=== PATIENT | female | born 2000 | race Caucasian/White ===

== ENCOUNTER 2021-04-07 15:38 | Emergency (ER) | payer BC ==
[2021-04-07] MEDS ORDERED: cefTRIAXone 250 MG VIAL IM STA (15:48)
[2021-04-07 15:53] VITALS: TEMP 98.6
[2021-04-07 17:30] LABS: Basophils % (A) 0 %; Eosinophils # (A) 0.2 k/uL (0-0.7); Eosinophils % (A) 2 %; HCT 35.5 % (34.0-46.0); HGB 12.5 gm/dL (11.4-16.0); Lymphocytes % (A) 20 %; MCH 27.7 pg (25.0-35.0); MCHC 35.1 g/dL (31.0-37.0); MCV 78.9 fL (80.0-100.0); Mean Platelet Volume 7.5; Monocytes # (A) 0.8 k/uL (0-1.0); Monocytes % (A) 5 %; Neutrophils # (A) 10.5 k/uL (1.3-7.7); Neutrophils % (A) 72 %; Platelet Count 300 k/uL (150-450); RDW 14.1 % (11.5-15.5); WBC 14.6 k/uL (4.0-11.0)
[2021-04-07 17:43] LABS: ALT 11 U/L (4-34); AST 19 U/L (14-36); African American GFR (CKD) >90 (>60 ml/min/1.73 sqM); Albumin 3.7 g/dL (3.5-5.0); Alkaline Phosphatase 85 U/L (38-126); Anion Gap 10 mmol/L; Blood Urea Nitrogen 5 mg/dL (7-17); Calcium 9.9 mg/dL (8.4-10.2); Carbon Dioxide 22 mmol/L (22-30); Chloride 104 mmol/L (98-107); Glucose 93 mg/dL (74-99); Non-African American GFR(CKD) >90 (>60 ml/min/1.73 sqM); Potassium 4.1 mmol/L (3.5-5.1); Sodium 136 mmol/L (137-145); Total Bilirubin <0.1 mg/dL (0.2-1.3); Total Protein 6.4 g/dL (6.3-8.2)
[2021-04-07 17:56] VITALS: BP 129/81; PULSE 91; RESP 18
--- NOTE | 2021-04-07 18:13 | US ---
EXAMINATION TYPE: US OB >= 14 wk fetus DATE OF EXAM: 04/07/2021 COMPARISON: None CLINICAL HISTORY: pain Gonorrhea+ concern for PIDPatient states she is not having any pain. Spotting . TECHNIQUE: Transabdominal (TA) GESTATIONAL AGE / DATING Physician Established: (14 weeks/6 days) EDC: 09/30/2021 Dates by Current Scan: (15 weeks/4 days) EDC: 09/25/2021 Beta HCG (if available): Not available at this time SURVEY IUP: Single PLACENTA: Anterior PREVIA: No Previa DORETHA: 16.7 cm Normal CERVICAL LENGTH (transabdominal: norm > 3.0cm): 3.5 cm BIOMETRY PRESENTATION: Vertex BPD: 2.9 cm 15 weeks / 2 days HC: 11.1 cm 15 weeks / 2 days AC: 9.4 cm 15 weeks / 4 days FL: 1.8 cm 15 weeks / 3 days ESTIMATED WEIGHT IN GRAMS: 125.6 grams ESTIMATED WEIGHT IN LBS/OZ: 0 lbs. 4 oz. WEIGHT PERCENTAGE BASED ON ESTABLISHED DATES: 80.5% HC/AC: 1.2 Normal FL/AC: 19.7 HEART RATE: 157 bpm RHYTHM: Normal Single live IUP visualized measuring 15 weeks 4 days. No abnormality seen in bilateral adnexa. Bila teral ovaries appear wnl. IMPRESSION: Single live intrauterine without significant abnormality seen.
[2021-04-07 18:23] LABS: HCG,Quantitative Serum 44979.3 mIU/mL
--- NOTE | 2021-04-07 18:26 | ED ---
Female Urogenital HPI - General Chief complaint: Vaginal Bleeding Stated complaint: 15Wks Preg/Bleeding Source: patient Mode of arrival: ambulatory Limitations: no limitations - History of Present Illness Initial comments: Bruna is a 21-year-old female currently 15 Weeks presenting to the ER today after having vaginal bleeding, single episode of bright red blee ding on Monday. Bleeding did not have it after intercourse. Bleeding was not associated with any cramping passing of clots or tissue. She's not had any bleeding since that time. While in our waiting room she was contacted by her marking devices assembler office and notified that she is positive for gonorrhea and does have bacterial vaginosis. I was also notified by her marking devices assembler office who recommended treatment with gonorrhea with Rocephin IM, they will treat bacterial vaginosis a follow-up visit. - Related Data Home Medications Medication Instructions Recorded Confirmed Gummy 1 tab PO DAILY 04/07/21 04/07/21 QUEtiapine XR [SEROquel XR] 200 mg PO HS 04/07/21 04/07/21 Allergies Allergy/AdvReac Type Severity Reaction Status Date / Time No Known Allergies Allergy Verified 04/07/21 17:52 Review of Systems ROS Statement: Those systems with pertinent positive or pertinent negative responses have been documented in the HPI. ROS Other: All systems not noted in ROS Statement are negative. Past Medical History Past Medical History: No Reported History History of Any Multi-Drug Resistant Organisms: None Reported Past Surgical History: No Surgical Hx Reported Past Psychological History: No Psychological Hx Reported Smoking Status: Never smoker Past Alcohol Use History: None Reported Past Drug Use History: None Reported General Exam - General Exam Comments Initial Comments: Physical Exam GENERAL: Patient is well-developed and well-nourished. Patient is nontoxic and well-hydrated and is in no distress. HENT: Normocephalic, Atraumatic. EYES: PERRL, EOMI PULMONARY: Unlabored respirations. CARDIOVASCULAR: RRR Warm and well perfused extremities ABDOMEN: Non-distended SKIN: No rashes or bruising : Cervix is closed there is no active bleeding there is purulent discharge NEUROLOGIC: Alert and oriented Normal speech Normal gait MUSCULOSKELETAL: Moving all extremities with no apparent injury PSYCHIATRIC: No SI/HI Limitations: no limitations Course Vital Signs 04/07/21 04/07/21 15:51 17:52 Temperature 98.6 F Pulse Rate 94 91 Respiratory 16 18 Rate Blood Pressure 128/83 129/81 O2 Sat by Pulse 100 99 Oximetry Medical Decision Making - Medical Decision Making The patient was seen and evaluated history is obtained from patient as well as information from gynecology office Patient was treated for gonorrhea infection with IM Rocephin, ultrasound revealed no signs of tubo-ovarian abscess or PID Patient with minimal symptoms, Rh+ no indication for him comfortable plan for discharge home and outpatient follow-up with gynecology - Lab Data Result diagrams: 04/07/21 16:20 04/07/21 16:20 Lab Results 04/07/21 04/07/21 04/07/21 Range/Units 16:20 16:20 16:20 WBC 14.6 H (4.0-11.0) k/uL RBC 4.50 (3.80-5.40) m/uL Hgb 12.5 (11.4-16.0) gm/dL Hct 35.5 (34.0-46.0) % MCV 78.9 L (80.0-100.0) fL MCH 27.7 (25.0-35.0) pg MCHC 35.1 (31.0-37.0) g/dL RDW 14.1 (11.5-15.5) % Plt Count 300 (150-450) k/uL MPV 7.5 Neutrophils % 72 % Lymphocytes % 20 % Monocytes % 5 % Eosinophils % 2 % Basophils % 0 % Neutrophils # 10.5 H (1.3-7.7) k/uL Lymphocytes # 3.0 (1.0-4.8) k/uL Monocytes # 0.8 (0-1.0) k/uL Eosinophils # 0.2 (0-0.7) k/uL Basophils # 0.0 (0-0.2) k/uL Sodium 136 L (137-145) mmol/L Potassium 4.1 (3.5-5.1) mmol/L Chloride 104 (98-107) mmol/L Carbon Dioxide 22 (22-30) mmol/L Anion Gap 10 mmol/L BUN 5 L (7-17) mg/dL Creatinine 0.58 (0.52-1.04) mg/dL Est GFR (CKD-EPI)AfAm >90 (>60 ml/min/1.73 sqM) Est GFR (CKD-EPI)NonAf >90 (>60 ml/min/1.73 sqM) Glucose 93 (74-99) mg/dL Calcium 9.9 (8.4-10.2) mg/dL Total Bilirubin <0.1 L (0.2-1.3) mg/dL AST 19 (14-36) U/L ALT 11 (4-34) U/L Alkaline Phosphatase 85 (38-126) U/L Total Protein 6.4 (6.3-8.2) g/dL Albumin 3.7 (3.5-5.0) g/dL HCG, Quant 42945.3 mIU/mL Blood Type O Positive Blood Type Recheck No Previous Record Bld Type Recheck Status [facility] ONLY Disposition Clinical Impression: Vaginal bleeding before 22 weeks gestation, Gonorrhea affecting in second trimester, Bacterial vaginosis in Disposition: HOME SELF-CARE Condition: Stable Is patient prescribed a controlled substance at d/c from ED?: No Referrals: None,Stated [Primary Care Provider] - 1-2 days
== END 2021-04-07 18:55 | disposition home or self-care (01) ==
LOC: EC 15:38
DX: O20.9 Hemorrhage in early pregnancy, unspecified (principal); O98.212 Gonorrhea complicating pregnancy, second trimester; O23.592 Infection of other part of genital tract in pregnancy, second trimester; A54.00 Gonococcal infection of lower genitourinary tract, unspecified; B96.89 Other specified bacterial agents as the cause of diseases classified elsewhere; Z3A.15 15 weeks gestation of pregnancy
CPT/HCPCS: 96372 ×2; 99284 ×2; 36415; 86900; 86901; 80053; 85025; 84702; 76805; J0696

== ENCOUNTER 2021-09-01 15:24 | Observation (INO) | payer BC, OTHER ==
[2021-09-01 16:01] LABS: Creatinine,Urine Random 231.9 mg/dL; Protein/Creatinine Ratio,Urine 0.358
[2021-09-01 16:02] LABS: Creatinine,Urine Random 226.7 mg/dL
[2021-09-01 16:27] LABS: Amorphous Sediment,Urine Occasional /hpf; Appearance,Urine Cloudy (Clear); Bacteria,Urine Few /hpf; Bilirubin,Urine Negative (Negative); Blood,Urine Small (Negative); Color,Urine Yellow; Glucose,Urine (UA) Negative (Negative); Hyaline Casts,Urine 1 /lpf (0-2); Ketones,Urine Negative (Negative); Leukocyte Esterase,Urine Small (Negative); Mucus,Urine Occasional /hpf; Nitrite,Urine Negative (Negative); PH, Urine 6.5 (5.0-8.0); Protein,Urine 2+ (Negative); RBC,Urine 7 /hpf (0-5); Specific Gravity,Urine 1.023 (1.001-1.035); Squamous Epithelial Cell,Urine 22 /hpf (0-4); Urobilinogen,Urine <2.0 mg/dL (<2.0); WBC,Urine 21 /hpf (0-5)
[2021-09-01 17:11] LABS: ALT 10 U/L (4-34); AST 21 U/L (14-36); African American GFR (CKD) >90 (>60 ml/min/1.73 sqM); Basophils # (A) 0.1 k/uL (0-0.2); Basophils % (A) 0 %; Blood Urea Nitrogen 8 mg/dL (7-17); Eosinophils # (A) 0.1 k/uL (0-0.7); Eosinophils % (A) 1 %; HCT 32.2 % (34.0-46.0); HGB 10.5 gm/dL (11.4-16.0); Hypochromasia Slight; Lymphocytes # (A) 2.7 k/uL (1.0-4.8); Lymphocytes % (A) 18 %; MCHC 32.5 g/dL (31.0-37.0); MCV 76.8 fL (80.0-100.0); Mean Platelet Volume 9.1; Microcytosis Slight; Monocytes # (A) 0.9 k/uL (0-1.0); Monocytes % (A) 6 %; Neutrophils % (A) 73 %; Non-African American GFR(CKD) >90 (>60 ml/min/1.73 sqM); Platelet Count 289 k/uL (150-450); RBC 4.19 m/uL (3.80-5.40); Uric Acid 4.7 mg/dL (3.7-7.4); WBC 15.1 k/uL (4.0-11.0)
[2021-09-01] MEDS: LACTATED RINGERS 1,000 ML IV SCH ×2 (18:48→22:36)
--- NOTE | 2021-09-01 19:49 | P.HPOB ---
History of Present Illness H&P Date: 09/01/21 Chief Complaint: 35-6/7 weeks, elevated blood pressures, contractions the patient is a 21-year-old 1 para 0 admitted at 35-6/7 weeks as established by early ultrasound. She was sent from the office secondary to some elevated blood pressures in the office for evaluation for the possibility of preeclampsia. On labor and delivery, she has had occasionally elevated blood pressures but generally has been found in the range of 140 over 80s to 90. Laboratory workup demonstrates no significant evidence of preeclampsia though she does have 2+ urine protein at both the office and in the hospital. She was found to becontracting every 2-3 minutes after having had her cervix checked in the office this afternoon. She was noted to be essentially closed, thick, and high.as it is unclear whether she may be in early labor O whether she does have a in action a viable condition, she was admitted for observation and 24-hour urine collection. Group B strep status was done today and is pending. On labor and delivery, heart tones demonstrated category 1 heart rate tracing. Her has been essentially uncomplicated otherwise though she does live approximately 90 minutes away from the hospital. Obstetrical history: 1 para 0 with current statistics listed in history present illness. EDC of 09/30/2021 was established by early ultras ound. Laboratory workup done as she is a blood type of O+ with a negative antibody screen. Rubella status is immune. She was found initially to have gonorrhea in the early part of the was treated with Rocephin. Early Glucola was elevated and followed by a normal three-hour glucose tolerance test. Second trimester Glucola was within normal limits. Group B strep status is pending. Gynecologic history: Significant for gonorrhea discovered early in the which is been treated with no evidence on the record for test of cure at this time though I suspect this has been completed. Review of Systems review of systems is confined to history of present illness. Past Medical History Past Medical History: No Reported History History of Any Multi-Drug Resistant Organisms: None Reported Past Surgical History: No Surgical Hx Reported Past Psychological History: No Psychological Hx Reported Smoking Status: Never smoker Past Alcohol Use History: None Reported Past Drug Use History: None Reported - Past Family History Father Family Medical History: No Reported History Medications and Allergies Home Medications Medication Instructions Recorded Confirmed Type Gummy 1 tab PO DAILY 04/07/21 09/01/21 History QUEtiapine XR [SEROquel XR] 200 mg PO HS 04/07/21 09/01/21 History Allergies Allergy/AdvReac Type Severity Reaction Status Date / Time No Known Allergies Allergy Verified 09/01/21 15:34 Exam Vital Signs Temp Pulse Resp BP Pulse Ox 09/01/21 18:51 98.4 F 95 16 143/90 97 09/01/21 18:45 93 16 146/89 09/01/21 18:38 98.4 F 99 16 141/86 97 09/01/21 15:53 100 20 154/95 09/01/21 15:38 98.4 F 95 16 143/90 97 Intake and Output 09/01/21 09/01/21 09/01/21 06:59 14:59 22:59 Other: Weight 93.894 kg in general, this mildly obese white female in no acute distress. Her heart has a regular rhythm and rate without murmur. Her lungs are clear to auscultation bilaterally in all martinez. Her abdomen is gravid, nondistended, has normal active bowel sounds, soft, nontender, and without any palpable masses aside from uterine fundus. Her extremities are without any cyanosis, clubbing, or significant edema and are nontender to palpation bilaterally. Digital cervical examination performed by the nursing staff demonstrates her cervix to be closed, 50% effaced, the vertex in presentation at -2 station. Results Result Diagrams: 09/01/21 16:32 09/01/21 16:32 Abnormal Lab Results - Last 24 Hours (Table) 09/01/21 09/01/21 09/01/21 Range/Units 15:52 15:52 16:32 WBC 15.1 H (4.0-11.0) k/uL Hgb 10.5 L (11.4-16.0) gm/dL Hct 32.2 L (34.0-46.0) % MCV 76.8 L (80.0-100.0) fL Neutrophils # 11.0 H (1.3-7.7) k/uL Urine Appearance Cloudy H (Clear) Urine Protein 2+ H (Negative) Urine Blood Small H (Negative) Ur Leukocyte Esterase Small H (Negative) Urine RBC 7 H (0-5) /hpf Urine WBC 21 H (0-5) /hpf Ur Squamous Epith Cells 22 H (0-4) /hpf Amorphous Sediment Occasional H (None) /hpf Urine Bacteria Few H (None) /hpf Urine Mucus Occasional H (None) /hpf U Random Total Protein 83 H (<12) mg/dL Assessment and Plan (1) 35 to 36 weeks gestation of Current Visit: Yes Status: Acute Code(s): [id number] - SNOMED Code(s): 502532423 (2) Proteinuria affecting Current Visit: Yes Status: Acute Code(s): O12.10 - GESTATIONAL PROTEINURIA, UNSPECIFIED TRIMESTER SNOMED Code(s): 53030509 (3) Mild hypertension Current Visit: Yes Status: Acute Code(s): I10 - ESSENTIAL (PRIMARY) HYPERTENSION SNOMED Code(s): 20168201 Plan: workup for severe signs of preeclampsia to this point has been negative. Given her early gestation, we have opted to admit the patient for observation and collect a 24-hour urine for protein and creatinine clearance. We additionally will continue to follow her blood pressures closely. She may require an antihypertensive but a significant amount of her disposition will fall upon the results of the 24-hour urine collection. I doubt that she is in labor at this time but we will continue to monitor for the possibility of labor and continue to have close following of her blood pressure.
[2021-09-02] MEDS: LACTATED RINGERS 1,000 ML IV SCH (08:13)
--- NOTE | 2021-09-02 10:47 | P.PNOBGAP ---
Subjective - Subjective Principal diagnosis: proteinuria at 36-0/7 weeks Interval history: feeling well overnight. Denies headaches, visual changes, nausea, vomiting, vaginal bleeding or leakage of fluids. Appetite is good. She complains of irregular contractions. Good movement. Antepartum ROS: Reports movement normal, Reports contractions, Denies new complaints, Denies loss of fluid, Denies vaginal bleeding Objective - Vital Signs Vital Signs: Vital Signs Temp Pulse Resp BP Pulse Ox 09/02/21 08:00 98.2 F 101 H 16 131/65 96 09/02/21 06:00 106 H 16 127/58 09/02/21 04:00 141/67 09/02/21 02:00 128/59 09/02/21 00:00 140/78 09/01/21 22:30 147/84 09/01/21 21:30 139/90 09/01/21 21:03 139/87 09/01/21 20:33 142/87 09/01/21 20:03 132/89 09/01/21 19:55 145/84 09/01/21 19:30 183/87 09/01/21 18:51 98.4 F 95 16 143/90 97 09/01/21 18:45 93 16 146/89 09/01/21 18:38 98.4 F 99 16 141/86 97 09/01/21 15:53 100 20 154/95 09/01/21 15:38 98.4 F 95 16 143/90 97 Intake and Output 09/01/21 09/02/21 09/02/21 22:59 06:59 14:59 Other: # Voids 3 1 Weight 93.894 kg - Exam Auscultation: bilateral: normal Abdomen: Present: normal appearance, soft. Absent: tenderness Uterus: Present: normal. Absent: tenderness - Labs Labs: Abnormal Labs 09/01/21 09/01/21 09/01/21 15:52 15:52 16:32 WBC 15.1 H Hgb 10.5 L Hct 32.2 L MCV 76.8 L Neutrophils # 11.0 H Urine Appearance Cloudy H Urine Protein 2+ H Urine Blood Small H Ur Leukocyte Esterase Small H Urine RBC 7 H Urine WBC 21 H Ur Squamous Epith Cells 22 H Amorphous Sediment Occasional H Urine Bacteria Few H Urine Mucus Occasional H U Random Total Protein 83 H Assessment and Plan (1) 35 to 36 weeks gestation of Current Visit: Yes Status: Acute Code(s): IVM4845 - SNOMED Code(s): 990368301 (2) Mild hypertension Narrative/Plan: blood pressures normal overnight. All laboratory testing at this point within normal limits with the exception of 2+ protein in urine dip. 24-hour urine protein is pending. I reviewed in detail with the patient and her mother the reason for her observation is to rule out severe preeclampsia which may indicate delivery. At this time on the this is unlikely. She is feeling very well and her blood pressures have normalized. Plan would be for discharge home unless findings of severe proteinuria on 24-hour urine protein. I discussed that she will have close follow-up for the duration of the likely twice weekly for testing, blood pressure checks and further evaluation. We discussed modified activities at home. We reviewed signs and symptoms of labor as well as kick counts. All questions were answered, greater than 20 minutes spent at the bedside. Current Visit: Yes Status: Acute Code(s): I10 - ESSENTIAL (PRIMARY) HYPERTENSION SNOMED Code(s): 10076275 (3) Proteinuria affecting Current Visit: Yes Status: Acute Code(s): O12.10 - GESTATIONAL PROTEINURIA, UNSPECIFIED TRIMESTER SNOMED Code(s): 40379239
[2021-09-02 16:36] VITALS: RESP 16
[2021-09-02 20:21] VITALS: BP 134/93; PULSE 97; TEMP 98.8
[2021-09-02 21:04] LABS: Total Protein 24 Hour,Urine 704 mg/24hr (42.0-225.0); Total Volume 24 Hour,Urine 3200 mls (800-1800)
[2021-09-02 21:18] LABS: Creatinine 24 Hour,Urine 1843.2 mg/24hr (800.0-1800.0)
== END 2021-09-02 21:30 | disposition home or self-care (01) ==
LOC: FBPOP 15:24 → 4FBP 17:45
PROVIDERS: ADMIT Obstetrics & Gynecology; ATTEND Obstetrics & Gynecology
DX: O12.13 Gestational proteinuria, third trimester (principal); O16.3 Unspecified maternal hypertension, third trimester; O47.03 False labor before 37 completed weeks of gestation, third trimester; Z3A.36 36 weeks gestation of pregnancy; Z86.19 Personal history of other infectious and parasitic diseases; Z79.899 Other long term (current) drug therapy
CPT/HCPCS: 59025; 82570 ×2; 84156 ×2; 81050; 82565; 83615; 84450; 84460; 84520; 84550; 85025; 81001; G0378 ×2; 99215

== ENCOUNTER 2021-09-06 15:36 | Inpatient (IN) | payer BC, OTHER ==
[2021-09-06 16:54] LABS: Basophils % (A) 0 %; Eosinophils # (A) 0.2 k/uL (0-0.7); Eosinophils % (A) 1 %; HCT 29.7 % (34.0-46.0); HGB 10.1 gm/dL (11.4-16.0); Lymphocytes # (A) 2.2 k/uL (1.0-4.8); Lymphocytes % (A) 15 %; MCHC 33.9 g/dL (31.0-37.0); MCV 73.7 fL (80.0-100.0); Mean Platelet Volume 9.5; Microcytosis Slight; Monocytes % (A) 7 %; Neutrophils # (A) 11.1 k/uL (1.3-7.7); Neutrophils % (A) 76 %; Platelet Count 251 k/uL (150-450); RBC 4.03 m/uL (3.80-5.40); RDW 15.6 % (11.5-15.5); WBC 14.6 k/uL (4.0-11.0)
[2021-09-06] MEDS: miSOPROStoL 25 MCG TAB VAGINAL PRN ×3 (16:54→23:05)
[2021-09-06] MEDS ORDERED: BUTORPHANOL 1 MG/ML 1 ML VIAL IV PRN (16:55)
--- NOTE | 2021-09-06 17:02 | P.HPOB ---
History of Present Illness H&P Date: 09/06/21 Neuro EDC 09/30/2021 at 36-4/7 weeks' gestation. Patient came to the hospital last week with elevated blood pressures from the office, 24 hour urine revealed greater than 700 mg of protein. Blood pressure improved on bed rest and patient was sent home. She re-presented to the office today for her visit, blood pressure 160/100, repeat 154/78. Patient was sent to labor and delivery for Cytotec induction with unfavorable cervix. Fetus is been active throughout the . Patient denies headache, visual changes, right upper quadrant pain. Past medical history is significant for insomnia. Past surgical history dental extraction. Current medications vitamin daily, omeprazole 20 mg prior to meals,quotiapine 200 mg twice daily.. ALLERGIES none known. Family history significant for breast cancer. Social history patient has never been a smoker, she denies alcohol or drug use, she is single, and works at the [employer] locally. history blood type is O+, rubella status immune. VDRL testing, urine culture, hepatitis B surface antigen, HIV testing, chlamydia culture all negative. One-hour Glucola 144, 3 hour GTT within normal limits. Group B strep status unknown. On exam patient is 5 foot 0 inches, 209 pounds, blood pressure 146/91 on admission, pulse 103. The general physical exam is within normal limits. Patient has 2+ peripheral edema, normal reflexes. Reactive NST noted. Cervix is fingertip dilated, 50% effaced, -3 station, vertex presentation. Cytotec 25 MCG's is placed posterior to the cervix. Impression: 36-4/7 weeks intrauterine , gestational hypertension, proteinuria. Here for Cytotec induction. Plan: Cytotec 25 MCG's every 3 hours intravaginally. Nothing by mouth after midnight. Oxytocin at 06 100 pending cervical status. Analgesic options reviewed. Labs on admission still pending. Review of Systems Constitutional: Reports as per HPI Past Medical History Past Medical History: No Reported History History of Any Multi-Drug Resistant Organisms: None Reported Past Surgical History: No Surgical Hx Reported Past Psychological History: No Psychological Hx Reported Smoking Status: Never smoker Past Alcohol Use History: None Reported Past Drug Use History: None Reported - Past Family History Mother Family Medical History: No Reported History Medications and Allergies Home Medications Medication Instructions Recorded Confirmed Type Gummy 1 tab PO DAILY 04/07/21 09/06/21 History QUEtiapine XR [SEROquel XR] 200 mg PO HS 04/07/21 09/06/21 History Allergies Allergy/AdvReac Type Severity Reaction Status Date / Time No Known Allergies Allergy Verified 09/06/21 15:41 Exam Vital Signs Temp Pulse Resp BP Pulse Ox 09/06/21 16:31 96 18 143/88 09/06/21 16:07 101 H 18 141/86 09/06/21 15:57 98.3 F 103 H 20 146/91 09/06/21 15:48 98.3 F 103 H 20 150/90 97 Intake and Output 09/06/21 09/06/21 09/06/21 06:59 14:59 22:59 Other: Weight 94.801 kg See dictation under HPI please Results Result Diagrams: 09/06/21 16:41 Abnormal Lab Results - Last 24 Hours (Table) 09/06/21 Range/Units 16:41 WBC 14.6 H (4.0-11.0) k/uL Hgb 10.1 L (11.4-16.0) gm/dL Hct 29.7 L (34.0-46.0) % MCV 73.7 L (80.0-100.0) fL RDW 15.6 H (11.5-15.5) % Neutrophils # 11.1 H (1.3-7.7) k/uL Assessment and Plan Assessment: 36-4/7 weeks intrauterine , gestational hypertension, proteinuria. Here for induction of labor. Plan: Cytotec intravaginally every 3 hours per hospital protocol. Close maternal and surveillance. Nothing by mouth after midnight. Oxytocin at 06 100. Analgesic options reviewed. Time with Patient: Less than 30
[2021-09-06 17:14] LABS: ALT 11 U/L (4-34); AST 18 U/L (14-36); African American GFR (CKD) >90 (>60 ml/min/1.73 sqM); Blood Urea Nitrogen 6 mg/dL (7-17); LDH 424 U/L (313-618); Non-African American GFR(CKD) >90 (>60 ml/min/1.73 sqM); Uric Acid 4.4 mg/dL (3.7-7.4)
[2021-09-07] MEDS: miSOPROStoL 25 MCG TAB VAGINAL PRN (02:11)
[2021-09-07] MEDS ORDERED: PENICILLIN G POTASSIUM 5,000,000 UNIT in DEXTROSE 5% IN WATER 100 ML IVPB STA ×2 (05:46)
[2021-09-07] MEDS ORDERED: OXYTOCIN 30 UNITS/500 ML NS 30 UNIT in SALINE 1 500ML.BAG IV SCH ×2 (06:15→18:15)
[2021-09-07] MEDS: LACTATED RINGERS 1,000 ML IV SCH ×3 (06:16→10:18)
[2021-09-07] MEDS ORDERED: SODIUM CHLORIDE 0.9% 100 ML BAG ONE (08:20)
[2021-09-07] MEDS ORDERED: ROPIVACAINE 5MG/ML 20ML VIAL ONE (08:20)
[2021-09-07] MEDS ORDERED: fentaNYL (PF) 50 MCG/ML 5 ML AMP ONE (08:20)
[2021-09-07] MEDS: PENICILLIN G POTASSIUM 2,000,000 UNIT in DEXTROSE 5% IN WATER 100 ML IVPB SCH ×8 (10:17→23:22)
[2021-09-07] MEDS ORDERED: METHYLERGONOVINE 0.2 MG/ML 1 ML AMP IM ONE (17:30)
[2021-09-07] MEDS ORDERED: ZOLPIDEM 5 MG TAB PO PRN ×2 (17:54→18:11)
[2021-09-07] MEDS ORDERED: HYDROCORTISONE 2.5% RECTAL CREAM 30 GM TUBE RECTAL PRN ×2 (17:54→18:11)
[2021-09-07] MEDS ORDERED: BENZOCAINE/MENTHOL SPRAY 1 GM/SPRAY AEROSOL TOPICAL PRN ×2 (17:54→18:11)
[2021-09-07] MEDS ORDERED: diphenhydrAMINE 25 MG CAP PO PRN ×2 (17:54→18:11)
[2021-09-07] MEDS ORDERED: diphenhydrAMINE 50 MG CAP PO PRN ×2 (17:54→18:11)
[2021-09-07] MEDS ORDERED: SIMETHICONE 80 MG CHEWABLE PO PRN ×2 (17:54→18:11)
[2021-09-07] MEDS ORDERED: diphenhydrAMINE 50 MG/ML 1 ML VIAL IVP PRN ×4 (17:54→18:11)
[2021-09-07] MEDS ORDERED: LANOLIN CREAM 5 GM TUBE TOPICAL PRN ×2 (17:54→18:11)
--- NOTE | 2021-09-07 17:54 | P.PROBDLV ---
Vaginal Delivery Note - . Vaginal Delivery Note: This is a 21-year-old white female 1 para 0 EDC 09/30/2021 at 36-5/7 weeks' gestation who presented yesterday for Cytotec induction for gestational hypertension. Blood pressure 160 over 90s in the office, 146/91 on admission. She had a recent 24-hour urine that revealed 703 mg of protein. Please see dictated history and physical for details. Cytotec was given through the night 4, this morning artificial amniorrhexis revealed clear fluid. Oxytocin was started and titrated per hospital protocol. Penicillin G prophylaxis was given, at least 3 doses were received for unknown group B strep status. Patient became uncomfortable and requested epidural, this was placed without difficulty per the anesthesia staff. She had slow but steady progression through the first stage of labor and was judged to be completely dilated at 1626 hours. With good maternal expulsive efforts, slow but station was obtained. Toward the end of the second stage late decelerations were noted, however was continuing to come down the canal and progress continued. Oxygen was given per face mask and the epidural was discontinued. The perineal body was prepped with Betadine and draped in the usual sterile fashion. 's head delivered occiput anterior at 1725 and he restituted accordingly. There was a tight nuchal cord 1 that was reduced. The oropharynx, nasopharynx, and external nares were bulb suctioned on the perineal body. Infant was biting my finger vigorously at the time of bulb suctioning of the oral pharynx. The right or anterior shoulder was impacted behind the pubic symphysis, therefore the corkscrew maneuver was employed along with exaggerated Jeannette maneuver. Suprapubic pressure was also added, and the patient officially delivered a liveborn male infant at 1726 hrs. Umbilical cord was doubly clamped and ligated. Infant was handed to waiting nurses for evaluation where 's of 2, 6 and 8 at 1, 5 and 10 minutes were assigned. Infant weight 8 lbs. 8 oz., or 3840 g. Fundus is massaged. IV was not functioning well in the left hand, therefore Methergine 1 was given. Bleeding quickly normalized. Careful inspection of the cervix, vagina, perineum, periurethral, and perirectal areas revealed a small midline perineal laceration easily repaired in the usual fashion using 3-0 rapide suture after injecting with 1% lidocaine. All sponge, instrument and needle counts were correct at the end of procedure. Total estimated blood loss 300 mL's. Patient is requesting circumcision for her son.
[2021-09-07] MEDS ORDERED: ACETAMINOPHEN TAB 325 MG TAB PO PRN (18:11)
[2021-09-07] MEDS: IBUPROFEN 600 MG TAB PO PRN (18:30)
[2021-09-07] MEDS ORDERED: SENNOSIDES-DOCUSATE SODIUM 1 EACH TAB PO SCH (20:00)
[2021-09-07] MEDS ORDERED: LABETALOL 200 MG TAB PO PRN (21:16)
[2021-09-07] MEDS: SENNOSIDES-DOCUSATE SODIUM 1 EACH TAB PO SCH (21:25)
[2021-09-08] MEDS: PENICILLIN G POTASSIUM 2,000,000 UNIT in DEXTROSE 5% IN WATER 100 ML IVPB SCH ×2 (04:00)
[2021-09-08 07:50] LABS: Basophils # (A) 0.1 k/uL (0-0.2); Basophils % (A) 0 %; Eosinophils # (A) 0.1 k/uL (0-0.7); Eosinophils % (A) 0 %; HCT 27.6 % (34.0-46.0); HGB 9.2 gm/dL (11.4-16.0); Lymphocytes % (A) 13 %; MCH 24.7 pg (25.0-35.0); MCHC 33.3 g/dL (31.0-37.0); MCV 74.1 fL (80.0-100.0); Mean Platelet Volume 9.2; Microcytosis Slight; Monocytes # (A) 1.6 k/uL (0-1.0); Monocytes % (A) 7 %; Neutrophils % (A) 78 %; Platelet Count 241 k/uL (150-450); Poikilocytosis Slight; RBC 3.72 m/uL (3.80-5.40); RDW 15.9 % (11.5-15.5); WBC 23.3 k/uL (4.0-11.0)
--- NOTE | 2021-09-08 08:28 | P.DS ---
Providers Date of admission: 09/06/21 15:36 Expected date of discharge: 09/08/21 Attending physician: Juanita Marmolejo Primary care physician: Stated None Hospital Course: This is a 21-year-old white female 1 para 0 EDC 09/30/2021 36-5/7 weeks' gestation who presented with elevated blood pressures, and a 24 hour urine of 703 mg of protein. Despite bedrest, blood pressures continued to be high, 160/100 in the office. She was admitted for Cytotec induction, received Cytotec intravaginally 4 times. The following morning artificial amniorrhexis revealed clear fluid and oxytocin was started. Please see dictated history and physical for details. Epidural was placed, and ultimately patient delivered vaginally a liveborn male infant, weighing 8 lbs. 8 oz. or 3840 g. There was a mild shoulder dystocia that was alleviated with Jeannette maneuver, with corkscrew maneuver, and suprapubic pressure. There was a tight nuchal cord 1. Please note that antibiotics were given prophylactically for unknown group B strep cultures. B lood pressure after delivery 138/84. This morning the patient is doing well. She denies headache, visual changes, or right upper quadrant pain. Zanoni is doing well, circumcision has been performed. Blood pressure has been stable, 120s to 140s over 70's to 80s. Patient is judged to be in good condition for discharge home. She will follow-up with me in the office in 2 weeks for blood pressure check. She is reminded no intercourse, tampons or douching. She will use [id number] Advil or Aleve, or Motrin as needed for pain. She will call with any fevers shakes or chills, foul smelling or copious lochia, with the passage of large blood clots, with any pain not alleviated by [id number] products, or indeed with any concerns. We have briefly discussed contraceptive measures and we will discuss this further in the office. Zanoni infant will follow-up with paving foreman as per recommendations. Assessment: Doing well status post vaginal delivery Patient Condition at Discharge: Good Plan - Discharge Summary New Discharge Prescriptions: No Action QUEtiapine XR [SEROquel XR] 200 mg PO HS Gummy 1 tab PO DAILY Discharge Medication List Gummy 1 tab PO DAILY 04/07/21 [History] QUEtiapine XR [SEROquel XR] 200 mg PO HS 04/07/21 [History] Follow up Appointment(s)/Referral(s): Juanita Marmolejo MD [STAFF PHYSICIAN] - 2 Weeks Discharge Disposition: HOME SELF-CARE
[2021-09-08] MEDS: IBUPROFEN 600 MG TAB PO PRN ×2 (08:53→21:53)
[2021-09-08] MEDS: SENNOSIDES-DOCUSATE SODIUM 1 EACH TAB PO SCH ×2 (10:20→20:04)
[2021-09-09 00:08] VITALS: RESP 16
[2021-09-09 09:16] VITALS: TEMP 97.7
[2021-09-09] MEDS: SENNOSIDES-DOCUSATE SODIUM 1 EACH TAB PO SCH (09:36)
[2021-09-09] MEDS: IBUPROFEN 600 MG TAB PO PRN (11:54)
[2021-09-09 17:01] VITALS: BP 126/75; PULSE 88
== END 2021-09-09 16:20 | disposition home or self-care (01) | DRG 807 ==
LOC: 4FBP 15:36
PROVIDERS: ADMIT Obstetrics & Gynecology; ATTEND Obstetrics & Gynecology
PROC: 10E0XZZ Delivery of Products of Conception, External Approach (ICD-10-PCS; principal; 2021-09-06)
PROC: 0HQ9XZZ Repair Perineum Skin, External Approach (ICD-10-PCS; 2021-09-06)
PROC: 10907ZC Drainage of Amniotic Fluid, Therapeutic from Products of Conception, Via Natural or Artificial Opening (ICD-10-PCS; 2021-09-06)
PROC: 3E033VJ Introduction of Other Hormone into Peripheral Vein, Percutaneous Approach (ICD-10-PCS; 2021-09-06)
PROC: 3E0P7VZ Introduction of Hormone into Female Reproductive, Via Natural or Artificial Opening (ICD-10-PCS; 2021-09-06)
PROC: 4A0HXCZ Measurement of Products of Conception, Cardiac Rate, External Approach (ICD-10-PCS; 2021-09-06)
DX: O13.4 Gestational [pregnancy-induced] hypertension without significant proteinuria, complicating childbirth (principal); Z37.0 Single live birth; O76 Abnormality in fetal heart rate and rhythm complicating labor and delivery; O71.82 Other specified trauma to perineum and vulva; O66.0 Obstructed labor due to shoulder dystocia; O69.1XX0 Labor and delivery complicated by cord around neck, with compression, not applicable or unspecified; Z3A.36 36 weeks gestation of pregnancy
CPT/HCPCS: 82565; 83615; 84450; 84460; 84520; 84550; 85025; 88307

== ENCOUNTER → 2021-12-29 | Outpatient (CLI) | payer BC, OTHER | END | disposition home or self-care (01) | LOC: LABWHC1 15:55 | PROVIDERS: ATTEND Obstetrics & Gynecology | DX: N92.5 Other specified irregular menstruation (principal) | CPT/HCPCS: 36415; 84702 ==

== ENCOUNTER 2022-08-10 16:48 | Outpatient (CLI) | payer BC, OTHER ==
[2022-08-10 18:25] VITALS: BP 132/75; PULSE 92; RESP 16; TEMP 97.4
--- NOTE | 2022-08-11 07:24 | P.MSEPDOC ---
Presenting Problems - Arrival Data Date of Arrival on Unit: 08/10/22 Time of Arrival on Unit: 16:48 Mode of Transport: Ambulatory - Complaint OB-Reason for Admission/Chief Complaint: Possible Onset of Labor Medical History - Information : 2 Para: 1 Term: 0 : 1 Abortions: Spontaneous or Elective: 0 Number of Living Children: 1 - Gestational Age Gestational Age by JUAREZ (wks/days): 37 Weeks and 4 Days Review of Systems - Review of Systems Constitutional: No problems Breast: No problems ENT: No problems Cardiovascular: No problems Respiratory: No problems Gastrointestinal: No problems Genitourinary: No problems Musculoskeletal: No problems Neurological: No problems Skin: No problems Vital Signs - Temperature Temperature: 97.4 F Temperature Source: Axillary - Pulse Right Pulse Rate: 92 Pulse Assessment Method: Pulse Oximetry - Respirations Respiratory Rate: 16 Oxygen Delivery Method: Room Air O2 Sat by Pulse Oximetry: 97 - Blood Pressure Right Arm Blood Pressure: 132/75 Blood Pressure Mean: 94 Blood Pressure Source: Automatic Cuff Medical Screen Scoring - Cervical Exam Dilation (cm): 2 Effacement (%): 50 Station: -3 Membranes: Intact - Uterine Contractions Frequency From (mins): 4 Frequency To (mins): 9 Duration From (seconds): 50 Duration To (seconds): 80 Intensity: Mild Resting: Soft to palpation - Assessment - Baby A Baseline FHR: 150 Heart Rate - NICHD Category: Category I (Normal) NST: Reactive Physician Notification - Physician Notified Physician Notified Date: 08/10/22 Physician Notified Time: 18:10 Physician: Juanita Marmolejo Order Received: Yes (discharge home) Maternal Triage Index - Maternal Triage Index Presenting for scheduled procedure w/no complaint: No - Stat/Priority 1 Stat Priority 1: No - Urgent/Priority 2 Urgent Priority 2: No - Prompt/Priority 3 Prompt Priority 3: No - Non-Urgent/Priority 4 Non-Urgent Priority 4: Yes Criteria Met for Priority 4: Pt made no change in cervix exams Disposition - Disposition OB Disposition: Physician follow up in office, Discharge to home Discharge Date: 08/10/22 Discharge Time: 18:20 I agree with the RN Medical Screening Exam: Yes Case reviewed; plan agreed upon as documented in EMR&OBIX.: Yes Diagnosis: FALSE LABOR AT OR AFTER 37 COMPLETED WEEKS OF GESTATION
== END 2022-08-10 18:20 | disposition home or self-care (01) ==
LOC: FBPOP 16:48
PROVIDERS: ATTEND Obstetrics & Gynecology
DX: O47.1 False labor at or after 37 completed weeks of gestation (principal); Z3A.37 37 weeks gestation of pregnancy
CPT/HCPCS: 59025; 99213

== ENCOUNTER 2022-08-12 20:09 | Outpatient (CLI) | payer BC, OTHER ==
[2022-08-12 22:32] VITALS: BP 141/83; PULSE 99; RESP 16; TEMP 98.1
--- NOTE | 2022-08-13 12:05 | P.MSEPDOC ---
Presenting Problems - Arrival Data Date of Arrival on Unit: 08/12/22 Time of Arrival on Unit: 20:09 Mode of Transport: Wheelchair - Complaint OB-Reason for Admission/Chief Complaint: Possible Onset of Labor Comment: contractions since this afternoon Medical History - Information : 2 Para: 1 Term: 0 : 1 Abortions: Spontaneous or Elective: 0 Number of Living Children: 1 - Gestational Age Gestational Age by JUAREZ (wks/days): 37 Weeks and 6 Days - History Complications: Prior Review of Systems - Review of Systems Constitutional: No problems Breast: No problems ENT: No problems Cardiovascular: No problems Respiratory: No problems Gastrointestinal: No problems Genitourinary: No problems Musculoskeletal: No problems Neurological: No problems Skin: No problems Vital Signs - Temperature Temperature: 98.1 F Temperature Source: Oral - Pulse Right Sitting Pulse Rate: 99 Pulse Assessment Method: Automatic Cuff - Respirations Respiratory Rate: 16 Oxygen Delivery Method: Room Air O2 Sat by Pulse Oximetry: 97 - Blood Pressure Right Arm Sitting Blood Pressure: 141/83 Blood Pressure Mean: 102 Blood Pressure Source: Automatic Cuff Medical Screen Scoring - Cervical Exam Dilation (cm): 3 Effacement (%): 50 Station: -2 Membranes: Intact - Uterine Contractions Frequency From (mins): 3 Frequency To (mins): 6 Duration From (seconds): 70 Duration To (seconds): 80 Resting: Soft to palpation - Assessment - Baby A Baseline FHR: 150 Heart Rate - NICHD Category: Category I (Normal) NST: Reactive Physician Notification - Physician Notified Physician Notified Date: 08/12/22 Physician Notified Time: 21:38 Physician: Tiffanie Stanford Order Received: Yes ([facility]) Maternal Triage Index - Maternal Triage Index Presenting for scheduled procedure w/no complaint: No - Stat/Priority 1 Stat Priority 1: No - Urgent/Priority 2 Urgent Priority 2: No - Prompt/Priority 3 Prompt Priority 3: No - Non-Urgent/Priority 4 Non-Urgent Priority 4: Yes Criteria Met for Priority 4: contractions since this afternoon Disposition - Disposition OB Disposition: Discharge to home, Written follow up instructions reviewed Discharge Date: 08/12/22 Discharge Time: 21:45 I agree with the RN Medical Screening Exam: Yes Physician's MSE Comment: I have neither seen nor examined the patient. Case reviewed; plan agreed upon as documented in EMR&OBIX.: Yes Diagnosis: RELATED CONDITIONS, UNSPECIFIED, THIRD TRIMESTER
== END 2022-08-12 21:45 | disposition home or self-care (01) ==
LOC: FBPOP 20:09
PROVIDERS: ATTEND Obstetrics & Gynecology
DX: O26.893 Other specified pregnancy related conditions, third trimester (principal); Z3A.37 37 weeks gestation of pregnancy; N85.8 Other specified noninflammatory disorders of uterus
CPT/HCPCS: 59025; 99213

== ENCOUNTER 2022-08-16 13:12 | Outpatient (CLI) | payer BC, OTHER ==
[2022-08-16 14:41] VITALS: BP 131/76; PULSE 106; RESP 17; TEMP 98.1
--- NOTE | 2022-08-23 09:29 | P.MSEPDOC ---
Presenting Problems - Arrival Data Date of Arrival on Unit: 08/16/22 Time of Arrival on Unit: 13:12 Mode of Transport: Ambulatory - Complaint OB-Reason for Admission/Chief Complaint: Rule Out SROM Medical History - Information : 2 Para: 1 Term: 1 : 0 Abortions: Spontaneous or Elective: 0 Number of Living Children: 1 - Gestational Age Gestational Age by JUAREZ (wks/days): 38 Weeks and 3 Days Review of Systems - Review of Systems Constitutional: No problems Breast: No problems ENT: No problems Cardiovascular: No problems Respiratory: No problems Gastrointestinal: No problems Genitourinary: No problems Musculoskeletal: No problems Neurological: No problems Skin: No problems Vital Signs - Temperature Temperature: 98.1 F Temperature Source: Oral - Pulse Right Brachial Pulse Rate: 106 Pulse Assessment Method: Automatic Cuff - Respirations Respiratory Rate: 17 Oxygen Delivery Method: Room Air O2 Sat by Pulse Oximetry: 97 - Blood Pressure Right Arm Blood Pressure: 131/76 Blood Pressure Mean: 94 Blood Pressure Source: Automatic Cuff Medical Screen Scoring - Cervical Exam Dilation (cm): 4 Effacement (%): 60 Station: -2 Membranes: Intact - Assessment - Baby A Baseline FHR: 160 Heart Rate - NICHD Category: Category I (Normal) NST: Reactive Physician Notification - Physician Notified Physician Notified Date: 08/16/22 Physician Notified Time: 13:44 Physician: Juanita Marmolejo Order Received: Yes - Notification Comment Comment: Dr. Marmolejo given report on pt. Pt c/o. VS WNL. Cat 1 FHTs. Aminsure negative. Vag exam of 4/60/-2. Pt carroll irregular. Orders received to recheck pt after 1. hour. If no change in vag exam and NST reactive pt may be discharged to home. Pt sched. for IOL on 08/22. Maternal Triage Index - Non-Urgent/Priority 4 Non-Urgent Priority 4: Yes Criteria Met for Priority 4: Possible SROM. Disposition - Disposition OB Disposition: Physician follow up in office, Discharge to home Discharge Date: 08/16/22 Discharge Time: 14:38 I agree with the RN Medical Screening Exam: Yes Case reviewed; plan agreed upon as documented in EMR&OBIX.: Yes Diagnosis: FALSE LABOR AT OR AFTER 37 COMPLETED WEEKS OF GESTATION
== END 2022-08-16 14:35 | disposition home or self-care (01) ==
LOC: FBPOP 13:12
PROVIDERS: ATTEND Obstetrics & Gynecology
DX: O47.1 False labor at or after 37 completed weeks of gestation (principal); Z3A.38 38 weeks gestation of pregnancy
CPT/HCPCS: 59025; 84112; 99213

== ENCOUNTER 2022-08-22 00:22 | Inpatient (IN) | payer BC, OTHER ==
[2022-08-22] MEDS ORDERED: TERBUTALINE 1 MG/ML VIAL SQ PRN (00:56)
[2022-08-22] MEDS ORDERED: LIDOCAINE 0.5% (PF) 5 MG/ML (50 ML SDV) SQ PRN (00:56)
[2022-08-22] MEDS ORDERED: BUTORPHANOL 1 MG/ML 1 ML VIAL IV PRN (00:58)
[2022-08-22] MEDS ORDERED: OXYTOCIN 30 UNITS/500 ML NS 30 UNIT in SALINE 1 500ML.BAG IV SCH (01:00)
[2022-08-22] MEDS: LACTATED RINGERS 1,000 ML IV SCH ×2 (01:00→20:10)
[2022-08-22 01:10] LABS: Anisocytosis Slight; Basophils # (A) 0.1 k/uL (0-0.2); Basophils % (A) 0 %; Eosinophils # (A) 0.1 k/uL (0-0.7); Eosinophils % (A) 1 %; HCT 34.4 % (34.0-46.0); HGB 11.6 gm/dL (11.4-16.0); Lymphocytes # (A) 2.5 k/uL (1.0-4.8); Lymphocytes % (A) 21 %; MCH 25.2 pg (25.0-35.0); MCHC 33.8 g/dL (31.0-37.0); MCV 74.6 fL (80.0-100.0); Mean Platelet Volume 9.9; Microcytosis Moderate; Monocytes # (A) 0.6 k/uL (0-1.0); Monocytes % (A) 5 %; Neutrophils # (A) 8.2 k/uL (1.3-7.7); Neutrophils % (A) 69 %; Platelet Count 197 k/uL (150-450); RBC 4.61 m/uL (3.80-5.40); RDW 19.8 % (11.5-15.5); WBC 11.9 k/uL (3.8-10.6)
[2022-08-22] MEDS ORDERED: ROPIVACAINE 100 MG, fentaNYL (PF). 200 MCG in SODIUM CHLORIDE 0.9% 76 ML EPIDURAL ONE (05:44)
--- NOTE | 2022-08-22 08:22 | P.HPOB ---
History of Present Illness H&P Date: 08/22/22 Chief Complaint: My water broke last night. This is a 22-year-old female 2 para 1001 EDC 08/27/2022 at 39-2/7 weeks' gestation. Patient presents with spontaneous amniorrhexis which occurred at home last night. Oxytocin has been started. Epidural has been placed per her request. Please Past medical history is significant for gonorrhea in the past, insomnia. Past surgical history dental extraction in the past. Current medications vitamins daily. ALLERGIES none known. Family history significant for breast cancer. Obstetric history significant for 8 lbs. 8 oz. vaginal delivery 09/06/2021 with a mild shoulder dystocia. Social history patient is single, father of the baby is present. She denies tobacco alcohol or drug use. history is significant for blood type O+, rubella status immune. Hepatitis B surface antigen, HIV testing, urine culture, gonorrhea and chlamydia cultures, group B strep cultures all negative. One-hour Glucola 129. On exam patient is 5 foot 0 inches, 226 pounds, admitting blood pressure 134/80. Vital signs are stable and she is afebrile. Cervix is currently 6 cm dilated, 70% effaced, -2 station, vertex presentation. Artificial amniorrhexis of a fore bag reveals clear fluid. heart rate is consistent with reactive NST. Impression: 39-2/7 weeks intrauterine , early spontaneous labor. All signs reassuring. History of shoulder dystocia is noted and once again discussed. Plan: Continue oxytocin per hospital protocol. Continue close maternal and surveillance. Patient is wishing vaginal delivery with a history of shoulder dystocia, understanding the risk involved. Anticipate normal spontaneous vaginal delivery. Review of Systems Constitutional: Reports as per HPI Past Medical History Past Medical History: No Reported History History of Any Multi-Drug Resistant Organisms: None Reported Past Surgical History: No Surgical Hx Reported Past Anesthesia/Blood Transfusion Reactions: No Reported Reaction Past Psychological History: No Psychological Hx Reported Smoking Status: Never smoker Past Alcohol Use History: None Reported Past Drug Use History: None Reported - Past Family History Father Family Medical History: No Reported History Mother Family Medical History: No Reported History Medications and Allergies Home Medications Medication Instructions Recorded Confirmed Type Gummy 1 tab PO DAILY 04/07/21 08/22/22 History QUEtiapine XR [SEROquel XR] 200 mg PO HS 04/07/21 08/22/22 History Labetalol [Trandate] 1 tab PO BID 08/12/22 08/22/22 History Allergies Allergy/AdvReac Type Severity Reaction Status Date / Time No Known Allergies Allergy Verified 08/22/22 00:34 Exam Vital Signs Temp Pulse Resp BP Pulse Ox 08/22/22 00:33 96.9 F L 113 H 16 134/80 99 Intake and Output 08/21/22 08/22/22 08/22/22 22:59 06:59 14:59 Intake Total 0 Balance 0 Intake: Oral 0 Other: Weight 102.512 kg See dictation under HPI please Results Result Diagrams: 08/22/22 00:56 Abnormal Lab Results - Last 24 Hours (Table) 08/22/22 Range/Units 00:56 WBC 11.9 H (3.8-10.6) k/uL MCV 74.6 L (80.0-100.0) fL RDW 19.8 H (11.5-15.5) % Neutrophils # 8.2 H (1.3-7.7) k/uL Assessment and Plan Assessment: 39-2/7 weeks intrauterine , active spontaneous labor. All signs reassuring. History of shoulder dystocia last year noted. Patient's request for's vaginal delivery confirmed. All risks and benefits reviewed. Plan: Continue close maternal and surveillance. Continue oxytocin per hospital protocol. Anticipate normal spontaneous vaginal delivery. Delivery team is aware of patient's obstetric history and proper protocol and maneuvers reviewed. Time with Patient: Less than 30
--- NOTE | 2022-08-22 12:52 | P.PROBDLV ---
Vaginal Delivery Note - . Vaginal Delivery Note: This is a 22-year-old female 2 para 1001 EDC 08/27/2022 at 39-2/7 weeks' gestation. Patient presented for induction of labor as gradual, however she did have spontaneous amniorrhexis the evening before and presented in early active labor. is remarkable for blood type O+, rubella status immune, group B strep cultures negative. Please see my dictated history and physical for details. Oxytocin augmentation was started and titrated per hospital protocol. Patient requested an epidural and this was placed without difficulties. She progressed well and became completely dilated at 1209 hrs. Perineal body was prepped and draped in usual sterile fashion, she began the second stage of labor at that time. With good maternal expulsive efforts the head did crowned in the occiput anterior position. Infant restituted accordingly. There was a nuchal cord 1 that was reduced on the perineal body. An immediate "turtle sign" was appreciated. Patient's head was lowered, an exaggerated Jeannette maneuver was employed along with suprapubic pressure. This was unsuccessful, and therefore delivery of the posterior or right shoulder was accomplished. Patient was officially delivered of a liveborn female infant at 1227 hrs. Umbilical cord was clamped and ligated, she was handed to waiting rand cementer for evaluation where scores of 5 and 8 at one and 5 minutes respectively were given. The placenta delivered spontaneously, it was inspected and noted to be intact with trivascular cord at 1230 hrs. Uterus is then massaged. Bleeding was slightly brisk, and therefore Methergine IM was given times one along with oxytocin. Careful inspection of the cervix, vagina, perineum, periurethral, and perirectal areas revealed a small first- degree perineal laceration easily repaired in the usual fashion using 3-0 repeat suture. Total estimated blood loss 300 mL's. Fundus is firm and in the midline, symmetric and 18 week size upon completion of delivery. weighed 9 lbs. 8 oz. or 4310 g. Patient is allowed to begin the bonding experience in the LDR with her daughter.
[2022-08-22] MEDS ORDERED: SIMETHICONE 80 MG CHEWABLE PO PRN (12:55)
[2022-08-22] MEDS ORDERED: HYDROCORTISONE 2.5% RECTAL CREAM 30 GM TUBE RECTAL PRN (12:55)
[2022-08-22] MEDS ORDERED: BENZOCAINE/MENTHOL SPRAY 1 GM/SPRAY AEROSOL TOPICAL PRN (12:55)
[2022-08-22] MEDS ORDERED: diphenhydrAMINE 50 MG/ML 1 ML VIAL IVP PRN ×2 (12:55)
[2022-08-22] MEDS ORDERED: LANOLIN CREAM 5 GM TUBE TOPICAL PRN (12:55)
[2022-08-22] MEDS ORDERED: ZOLPIDEM 5 MG TAB PO PRN (12:55)
[2022-08-22] MEDS ORDERED: diphenhydrAMINE 25 MG CAP PO PRN (12:55)
[2022-08-22] MEDS ORDERED: diphenhydrAMINE 50 MG CAP PO PRN (12:55)
[2022-08-22] MEDS ORDERED: METHYLERGONOVINE 0.2 MG/ML 1 ML AMP IM ONE (13:03)
[2022-08-22] MEDS: IBUPROFEN 600 MG TAB PO PRN (14:12)
[2022-08-22] MEDS: LABETALOL 100 MG TAB PO SCH (15:54)
[2022-08-22] MEDS: SENNOSIDES-DOCUSATE SODIUM 1 EACH TAB PO SCH (20:10)
[2022-08-22] MEDS ORDERED: IBUPROFEN 600 MG TAB PO PRN (23:11)
[2022-08-23] MEDS: LABETALOL 100 MG TAB PO SCH ×4 (01:50→20:10)
[2022-08-23 04:50] LABS: Anisocytosis Slight; Basophils % (A) 0 %; Eosinophils # (A) 0.1 k/uL (0-0.7); Eosinophils % (A) 0 %; HCT 29.3 % (34.0-46.0); Hypochromasia Slight; Lymphocytes # (A) 2.3 k/uL (1.0-4.8); Lymphocytes % (A) 18 %; MCH 25.7 pg (25.0-35.0); MCHC 33.5 g/dL (31.0-37.0); MCV 76.8 fL (80.0-100.0); Mean Platelet Volume 9.9; Microcytosis Moderate; Monocytes # (A) 0.7 k/uL (0-1.0); Monocytes % (A) 6 %; Neutrophils # (A) 9.2 k/uL (1.3-7.7); Neutrophils % (A) 74 %; Platelet Count 167 k/uL (150-450); RBC 3.82 m/uL (3.80-5.40); RDW 19.6 % (11.5-15.5); WBC 12.6 k/uL (3.8-10.6)
[2022-08-23 04:58] LABS: HGB 9.8 gm/dL (11.4-16.0)
[2022-08-23] MEDS: IBUPROFEN 600 MG TAB PO PRN ×2 (08:53→16:06)
[2022-08-23] MEDS: SENNOSIDES-DOCUSATE SODIUM 1 EACH TAB PO SCH ×2 (08:54→20:11)
--- NOTE | 2022-08-23 09:27 | P.DS ---
Providers Date of admission: 08/22/22 00:22 Expected date of discharge: 08/23/22 Attending physician: Juanita Marmolejo Primary care physician: Stated None Hospital Course: This is a 22-year-old female 2 per 1001 EDC 08/27/2022 at 39-2/7 weeks. Patient was initially scheduled for induction of labor with favorable cervix, however presented in active spontaneous labor with spontaneous amniorrhexis, clear fluid. Her history is remarkable for shoulder dystocia 1 year ago, advised about the option of section but choosing vaginal births, aware of risks including repeat shoulder dystocia at . Please see my dictated history and physical for details. Patient delivered vaginally a liveborn female with scores of 5 and 8 at one and 5 minutes respectively. There was a tight nuchal cord 1. There was a shoulder dystocia, alleviated by exaggerated Jeannette maneuver, suprapubic pressure, and then delivery of the posterior shoulder. Infant weighed 9 lbs. 8 oz., or 4310 g. Small first-degree perineal laceration easily repaired, estimated blood loss 300 mL's. Methergine was given post for bleeding with excellent and immediate results. Please see dictated delivery note for details. This 20 the patient is doing well. She is voiding, ambulating, passing flatus without difficulty. Vital signs are stable and she is afebrile. 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 Continue taking blood pressures and documenting them. Call with any headache, visual changes, right upper quadrant pain, with any heavy vaginal bleeding, with any pain not alleviated by [id number] products to include Advil, Motrin, and obese. We've discussed options for contraception and we will discuss this further in the office. N ewborn infant will follow-up with Dr. Motta, her private die attaching machine tender, for right upper extremity weakness noted at this time. Assessment: Doing well first day Patient Condition at Discharge: Good Plan - Discharge Summary Discharge Rx Participant: No New Discharge Prescriptions: No Action QUEtiapine XR [SEROquel XR] 200 mg PO HS Gummy 1 tab PO DAILY Labetalol [Trandate] 1 tab PO BID Discharge Medication List Gummy 1 tab PO DAILY 04/07/21 [History] QUEtiapine XR [SEROquel XR] 200 mg PO HS 04/07/21 [History] Labetalol [Trandate] 1 tab PO BID 08/12/22 [History] Follow up Appointment(s)/Referral(s): Juanita Marmolejo MD [STAFF PHYSICIAN] - 2 Weeks Discharge Disposition: HOME SELF-CARE
--- NOTE | 2022-08-23 09:37 | P.MSEPDOC ---
Presenting Problems - Arrival Data Date of Arrival on Unit: 08/22/22 Time of Arrival on Unit: 00:25 Mode of Transport: Ambulatory - Complaint OB-Reason for Admission/Chief Complaint: Rule Out SROM Medical History - Information : 2 Para: 0 Term: 0 : 1 Abortions: Spontaneous or Elective: 0 Number of Living Children: 1 - Gestational Age Gestational Age by JUAREZ (wks/days): 39 Weeks and 2 Days - History Complications: Preeclampsia Comment: PIH Review of Systems - Review of Systems Constitutional: No problems Breast: No problems ENT: No problems Cardiovascular: No problems Respiratory: No problems Gastrointestinal: No problems Genitourinary: No problems Musculoskeletal: No problems Neurological: No problems Skin: No problems Vital Signs - Temperature Temperature: 98.1 F Temperature Source: Oral - Pulse Pulse Oximetery Pulse Rate: 94 Pulse Assessment Method: Pulse Oximetry - Respirations Respiratory Rate: 16 Oxygen Delivery Method: Room Air O2 Sat by Pulse Oximetry: 95 - Blood Pressure Right Arm Blood Pressure: 119/57 Blood Pressure Mean: 77 Blood Pressure Source: Automatic Cuff Medical Screen Scoring - Cervical Exam Dilation (cm): 4.5 Effacement (%): 60 Station: -2 Membranes: Ruptured - Uterine Contractions Intensity: Absent Resting: Soft to palpation - Assessment - Baby A Baseline FHR: 150 Heart Rate - NICHD Category: Category I (Normal) NST: Reactive Physician Notification - Physician Notified Physician Notified Date: 08/22/22 Physician Notified Time: 00:50 Physician: Juanita Marmolejo Order Received: Yes - Notification Comment Comment: RN to admit patient, Patient able to have an IV stadol 1 mg for pain, and can recieve an epidural anytime. Start pitocin at 0600am Maternal Triage Index - Prompt/Priority 3 Prompt Priority 3: Yes Criteria Met for Priority 3: Patient stated that clear membranes ruptured at 2330, patient stated that shes not feeling pain of contractions at this time. Denies sexual intercourse in the last 24 hours, denies vaginal bleeding. Amnisure is postive. Disposition - Disposition OB Disposition: Admit I agree with the RN Medical Screening Exam: Yes Case reviewed; plan agreed upon as documented in EMR&OBIX.: Yes Diagnosis: LOUSE-BORNE TYPHUS
[2022-08-24] MEDS: IBUPROFEN 600 MG TAB PO PRN ×2 (07:39→13:26)
[2022-08-24] MEDS: SENNOSIDES-DOCUSATE SODIUM 1 EACH TAB PO SCH (07:40)
[2022-08-24] MEDS: LABETALOL 100 MG TAB PO SCH (07:40)
[2022-08-24 07:52] VITALS: PULSE 86; TEMP 97.5
--- NOTE | 2022-08-24 08:11 | P.PNOBGVD ---
Subjective - Subjective Principal diagnosis: Normal Vaginal Delivery Interval history: The patient is doing well this morning and had no acute events overnight. She has no complaints this morning. She reports minimal lochia, passing flatus, voiding without difficulty, ambulating, and eating/drinking without nausea or vomiting. She denies chest pain, shortness of breathing, fevers, or chills overnight. She denies pain or swelling in the legs. Patient reports: Reports appetite normal, Reports voiding normally, Reports pain well controlled, Reports ambulating normally [place]: doing well Objective - Latest Vital Signs Latest vital signs: Vital Signs Temp Pulse Resp BP Pulse Ox 08/24/22 07:50 97.5 F L 86 17 104/64 08/24/22 00:00 98.5 F 95 16 130/83 98 08/23/22 20:00 97.6 F 72 16 129/78 99 08/23/22 16:00 97.5 F L 81 17 126/70 08/23/22 12:30 98.0 F 102 H 14 135/79 08/23/22 09:37 98.1 F 94 16 119/57 95 08/23/22 08:40 97.9 F 97 14 119/73 Intake and Output 08/23/22 08/24/22 08/24/22 22:59 06:59 14:59 Other: # Voids 1 2 - Exam Extremities: Present: normal Abdomen: Present: normal appearance, soft Uterus: Present: normal, firm Assessment and Plan Assessment: 22 y/o day #2 s/p normal vaginal delivery of female
[2022-08-24 12:39] VITALS: BP 132/81; RESP 18
== END 2022-08-24 15:15 | disposition home or self-care (01) | DRG 807 ==
LOC: 4FBP 00:22
PROVIDERS: ADMIT Obstetrics & Gynecology; ATTEND Obstetrics & Gynecology
PROC: 0HQ9XZZ Repair Perineum Skin, External Approach (ICD-10-PCS; principal; 2022-08-22)
PROC: 10E0XZZ Delivery of Products of Conception, External Approach (ICD-10-PCS; principal; 2022-08-22)
DX: O13.4 Gestational [pregnancy-induced] hypertension without significant proteinuria, complicating childbirth (principal); Z37.0 Single live birth; O69.1XX0 Labor and delivery complicated by cord around neck, with compression, not applicable or unspecified; O66.0 Obstructed labor due to shoulder dystocia; O70.0 First degree perineal laceration during delivery; Z79.899 Other long term (current) drug therapy; Z86.19 Personal history of other infectious and parasitic diseases; Z87.59 Personal history of other complications of pregnancy, childbirth and the puerperium; Z28.310 Unvaccinated for COVID-19; Z3A.39 39 weeks gestation of pregnancy
CPT/HCPCS: 59025; 84112; 85025; 86850; 86900; 86901; 99213

== ENCOUNTER → 2022-10-06 | Outpatient (CLI) | payer BC, OTHER ==
[2022-10-06 18:41] LABS: Basophils # (A) 0.04 X 10*3/uL (0.00-0.10); Basophils % (A) 0.4 %; Eosinophils # (A) 0.42 X 10*3/uL (0.04-0.35); Eosinophils % (A) 3.7 %; HCT 42.4 % (37.2-46.3); HGB 13.4 g/dL (12.0-15.0); Immature Grans, Automated 0.3 %; Lymphocytes # (A) 2.54 X 10*3/uL (0.90-5.00); Lymphocytes % (A) 22.4 %; MCH 24.5 pg (27.0-32.0); MCHC 31.6 g/dL (32.0-37.0); MCV 77.5 fL (80.0-97.0); Mean Platelet Volume 10.3 fL (9.5-12.2); Monocytes # (A) 0.64 X 10*3/uL (0.20-1.00); Monocytes % (A) 5.6 %; NRBC Per 100 WBC 0 /100 WBCS (0.0-0.0); Neutrophils # (A) 7.67 X 10*3/uL (1.80-7.70); Neutrophils % (A) 67.6 %; Platelet Count 307 X 10*3/uL (140-440); RBC 5.47 X 10*6/uL (4.10-5.20); RDW 18.6 % (11.5-14.5); WBC 11.34 X 10*3/uL (4.50-10.00)
== END | disposition home or self-care (01) ==
LOC: LABPAT 09:46
PROVIDERS: ATTEND Obstetrics & Gynecology
DX: Z30.2 Encounter for sterilization (principal)
CPT/HCPCS: 85025

== ENCOUNTER 2022-10-31 09:57 | Day surgery (SDC) | payer BC, OTHER ==
[~2022-10-31 09:57] MED LIST: Pre Op ABX Message 1 EACH MISC MISCELLANE ONE
[2022-10-31] MEDS ORDERED: ONDANSETRON 4 MG/2 ML VIAL IVP ONE (10:19)
[2022-10-31] MEDS ORDERED: DEXAMETHASONE SOD PHOSPHATE 4 MG/ML 1 ML VIAL IV ONE (10:19)
[2022-10-31] MEDS ORDERED: SCOPOLAMINE 1 MG/72 HR PATCH TRANSDERM ONE (10:19)
[2022-10-31] MEDS ORDERED: LIDOCAINE 1% (10MG/ML) FOR IV START INTRADERMA PRN (10:19)
[2022-10-31] MEDS ORDERED: HYDROmorphone 0.5 MG/0.5 ML SYRINGE IVP PRN (10:19)
[2022-10-31] MEDS ORDERED: LACTATED RINGERS 1,000 ML IV SCH (10:19)
[2022-10-31] MEDS ORDERED: PROPOFOL 10 MG/ML 20 ML VIAL IV ONE (11:56)
[2022-10-31] MEDS ORDERED: BUPIVACAINE (PF) 0.25% 30 ML VIAL SQ ONE (11:56)
[2022-10-31] MEDS ORDERED: NEOSTIGMINE 1 MG/ML 10 ML VIAL ONE (11:56)
[2022-10-31] MEDS ORDERED: KETOROLAC 15 MG/ML 1 ML VIAL ONE (11:56)
[2022-10-31] MEDS ORDERED: ROCURONIUM 10 MG/ML (5 ML VIAL) IV ONE (11:56)
[2022-10-31] MEDS ORDERED: LIDOCAINE 2% INJ 20 MG/ML (2 ML VIAL) ONE (11:56)
[2022-10-31] MEDS ORDERED: fentaNYL (PF) 50 MCG/ML 2 ML AMP ONE (11:56)
[2022-10-31] MEDS ORDERED: GLYCOPYRROLATE 0.2 MG/ML 2 ML VIAL ONE (11:56)
[2022-10-31] MEDS ORDERED: MIDAZOLAM 2 MG/2 ML VIAL ONE (11:56)
[2022-10-31] MEDS ORDERED: SUCCINYLCHOLINE CHLORIDE 200 MG/10 ML VIAL IV ONE (11:56)
[2022-10-31] MEDS ORDERED: SILVER NITRATE APPLICATOR 1 EACH STICK..EA. TOPICAL ONE (12:26)
--- NOTE | 2022-10-31 12:39 | P.OP ---
Date of Procedure: 10/31/22 Preoperative Diagnosis: Undesired fertility Postoperative Diagnosis: Same, essentially normal-appearing female pelvis Procedure(s) Performed: Laparoscopic tubal ligation with Filshie clips Anesthesia: JOSE Surgeon: Juanita Marmolejo [employer] #1: Harriet Ruvalcaba Estimated Blood Loss (ml): 5 IV fluids (ml): 400 Urine output (ml): 100 Pathology: none sent Condition: stable Disposition: PACU Operative Findings: Normal-appearing ovaries and tubes bilaterally, normal-appearing uterine fundus and corpus. A true posterior cul-de-sacs, bilateral pelvic sidewalls all negative for adhesions or endometriosis. Normal-appearing appendix, liver edge, gallbladder. Description of Procedure: Patient is brought to the operating suite where a general anesthetic is administered without difficulty. She's placed in the dorsal lithotomy position. The cervix, vagina, perineal body and abdomen are all prepped and draped in usual sterile fashion. The appropriate timeout was performed to assure proper patient and procedural identification. The bladder is drained for approximately 100 mL of clear yellow urine. Examination under anesthesia reveals an anteverted uterus which is small and mobile, negative adnexa bilaterally. Speculum was placed into the vagina, anterior lip of the cervix is grasped with a tenaculum. Bernard cannula is placed on the ectocervix and attached to the tenaculum. Speculum is removed. Attention is now drawn to the abdominal cavity. A small infraumbilical incision is made with a scalpel. Veress needle is placed and placement is checked with hanging drop technique. Abdomen is insufflated under low filling pressures of 4-8 mmHg. After 4.5 L of gas is given, varies needle is replaced. The trochars placed and placement is noted to be atraumatic. A second incision is made above the umbilicus and the second trocar is placed under direct visualization, again placement is atraumatic. Trendelenburg position is now utilized. Uterus is placed in the upper lateral position and the right fallopian tube is visualized in its entirety to the fimbriated end. Filshie clip is placed in the isthmic portion with care to traverse the entire diameter of the tube into the mesal salpinx. Same procedure is carried out contralaterally, with clip placed in the isthmic portion as well. Fimbriated ends visualized bilaterally. Ovaries appear normal. Inspection of the upper abdomen is negative. CO2 gas was allowed to diffuse and the instruments are removed under direct visualization, fascial defects are clean and dry. 4-0 undyed Monocryl is used for subcuticular closure of the 2 incisions. Cord percent Marcaine without epinephrine is injected, 10 mL total, 5 mL to each wound to aid in postoperative analgesia. Steri-Strips and Mastisol are applied to the wounds. Instrumentation is removed from the vagina. Cervix is clean and dry. All sponge needle and enhancement counts are correct. Patient is brought back to the recovery room in very good condition with stable vital signs including a pulse of 88, blood pressure 120/60. Toradol is given prior to leaving the operative suite. Written instructions are provided. She will follow-up in the office with me in 2 weeks.
[2022-10-31] MEDS ORDERED: HYDROmorphone 0.5 MG/0.5 ML SYRINGE IVP ONE ×3 (12:46→12:59)
[2022-10-31 12:53] VITALS: TEMP 97
[2022-10-31] MEDS ORDERED: LACTATED RINGERS 1,000 ML IV ONE ×2 (13:40)
[2022-10-31 14:07] VITALS: RESP 20
[2022-10-31] MEDS ORDERED: HYDROcodone/APAP 5-325MG 1 EACH TAB ONE (14:08)
[2022-10-31] MEDS ORDERED: HYDROcodone/APAP 5-325MG 1 EACH TAB PO ONE (14:15)
[2022-10-31 14:48] VITALS: BP 110/70; PULSE 80
== END 2022-10-31 14:46 | disposition home or self-care (01) ==
LOC: OR 09:57
PROVIDERS: ATTEND Obstetrics & Gynecology
DX: Z30.2 Encounter for sterilization (principal); Z79.899 Other long term (current) drug therapy; Z87.59 Personal history of other complications of pregnancy, childbirth and the puerperium; Z80.3 Family history of malignant neoplasm of breast
CPT/HCPCS: 58671; 81025; J2250; J0330; J1100; J2710; J2405; J3010; J1885; J2704; J1170; J2001

== ENCOUNTER 2024-01-19 13:54 | Emergency (ER) | payer BC, OTHER ==
--- NOTE | 2024-01-19 14:33 | ED ---
Abdominal Pain HPI - General Source: patient, RN notes reviewed Mode of arrival: ambulatory Limitations: no limitations <Levi Garcia - Last Filed: 01/19/24 14:32> - General Source: patient, RN notes reviewed Mode of arrival: ambulatory Limitations: no limitations - History of Present Illness MD Complaint: abdominal pain <Silva Thomas - Last Filed: 01/22/24 10:14> - General Chief Complaint: Abdominal Pain Stated Complaint: Abd pain Time Seen by Provider: 01/19/24 14:07 - History of Present Illness Initial Comments: Lashay noteshalom is a 23-year-old female presents emergency department chief complaint of abdominal pain patient states she has had pain increasing last 3 days states more diffuse in nature worsening worse with movement. Patient does admit to nausea she states she had a prior tubal ligation or abdominal surgeries. Denies fevers or chills she was seen by her PCP and sent here for evaluation. (Levi Garcia) This is a 23 year old female who presents to the emergency department for abdominal pain. Pain started 3 to 4 days ago. States that it is in the mid to lower abdomen. Unsure if it is worse on any particular side. Pain does not radiate into the back. Reports possible mild nausea but no vomiting. Denies any changes in bowel/bladder habits. Also denies any fever/chills or history of similar symptoms in the past. Unsure how to describe this pain. She saw her primary care provider who advised she come to the emergency department for further evaluation. (Silva Thomas) - Related Data Home Medications Medication Instructions Recorded Confirmed QUEtiapine XR [SEROquel XR] 200 mg PO HS 04/07/21 10/31/22 Previous Rx's Medication Instructions Recorded Celecoxib 200 mg PO TID PRN #30 cap 01/19/24 Dicyclomine [Bentyl] 20 mg PO QID PRN #30 tablet 01/19/24 Allergies Allergy/AdvReac Type Severity Reaction Status Date / Time No Known Allergies Allergy Verified 01/19/24 13:59 Review of Systems ROS Other: All systems not noted in ROS Statement are negative. <Levi Garcia - Last Filed: 01/19/24 14:32> ROS Other: All systems not noted in ROS Statement are negative. <Silva Thomas - Last Filed: 01/22/24 10:14> ROS Statement: Those systems with pertinent positive or pertinent negative responses have been documented in the HPI. Past Medical History Past Medical History: No Reported History History of Any Multi-Drug Resistant Organisms: None Reported Past Surgical History: No Surgical Hx Reported Past Anesthesia/Blood Transfusion Reactions: No Reported Reaction Past Psychological History: No Psychological Hx Reported Smoking Status: Never smoker Past Alcohol Use History: None Reported Past Drug Use History: None Reported - Past Family History Father Family Medical History: No Reported History Mother Family Medical History: No Reported History <Levi Garcia - Last Filed: 01/19/24 14:32> General Exam Limitations: no limitations <Levi Garcia - Last Filed: 01/19/24 14:32> Limitations: no limitations General appearance: alert, in no apparent distress Head exam: Present: atraumatic, normocephalic, normal inspection Respiratory exam: Present: normal lung sounds bilaterally. Absent: respiratory distress, wheezes, rales, rhonchi, stridor Cardiovascular Exam: Present: regular rate, normal rhythm, normal heart sounds. Absent: systolic murmur, diastolic murmur, rubs, gallop, clicks GI/Abdominal exam: Present: soft, tenderness (Diffuse), normal bowel sounds. Absent: distended, guarding, rebound Neurological exam: Present: alert, oriented X3, CN II-XII intact Psychiatric exam: Present: normal affect, normal mood Skin exam: Present: warm, dry, intact, normal color. Absent: rash <Silva Thomas - Last Filed: 01/22/24 10:14> - General Exam Comments Initial Comments: Visual Physical Exam Vital signs reviewed General: Well-appearing, nontoxic, no acute distress. Head: Normocephalic, atraumatic Eyes: PERRLA, EOMI ENT: Airway patent Chest: Nonlabored breathing Skin: No visual rash, normal skin tone Neuro: Alert and oriented 3 Musculoskeletal: No gross abnormalities (Levi Garcia) Course Vital Signs 01/19/24 01/19/24 01/19/24 13:56 15:35 17:48 Temperature 98.4 F 98.0 F Pulse Rate 103 H 98 80 Respiratory 20 18 18 Rate Blood Pressure 109/70 111/76 101/70 O2 Sat by Pulse 97 99 99 Oximetry Medical Decision Making <Levi Garcia - Last Filed: 01/19/24 14:32> - Lab Data Result diagrams: 01/19/24 15:01 01/19/24 15:01 - Radiology Data Radiology results: report reviewed, image reviewed <Silva Thomas - Last Filed: 01/22/24 10:14> - Medical Decision Making I completed the quick note portion of this chart signed Levi Garcia PA-C (Levi Garcia) This is a 23 year old female who presents to the emergency department for abdominal pain. Was pt. sent in by a medical professional or institution? @ -No Did you speak to anyone other than the patient for history? @ -No Did you review nursing and triage notes? @ -Yes, and I agree, it is accurate with regards to the patient's symptoms. Were old charts reviewed? @ -No Differential Diagnosis? @ -Differential Abdominal Pain Women: Appendicitis, Cholecystitis, diverticulosis, ischemic bowel, pancreatitis, hepatitis, UTI, gastroenteritis, AAA, incarcerated hernia, bowel obstruction, constipation, inflammatory bowel, hepatitis, peptic ulcer disease, splenic infarction, perforated viscus, vulvitis, ovarian torsion, PID, kidney stone, placenta abruption, this is not meant to be an all-inclusive list EKG interpreted by me (3pts min.)? @ -Not obtained X-rays interpreted by me (1pt min.)? @ -Not obtained CT interpreted by me (1pt min.)? @ -CT scan of the abdomen and pelvis obtained. My interpretation identifies no evidence of bowel wall thickening or free air. U/S interpreted by me (1pt. min.)? @ -Not obtained What testing was considered but not performed? (CT, X-rays, U/S, labs)? Why? @ -None What meds were considered but not given? Why? @ -None Did you discuss the management of the patient with other professionals? @ -No Did you reconcile home meds? @ -No Was smoking cessation discussed for >3mins.? @ -No Was critical care preformed (if so, how long)? @ -No Were there social determinants of health that impacted care today? How? (Homelessness, low income, unemployed, alcoholism, drug addiction, transportation, low edu. Level, literacy, decrease access to med. care, skilled nursing, rehab)? @ -No Was there de-escalation of care discussed even if they declined? (Discuss DNR or withdrawal of care, Hospice)? @ -No What co-morbidities impacted this encounter? (DM, HTN, Smoking, COPD, CAD, Cancer, CVA, Hep., AIDS, mental health diagnosis, sleep apnea, morbid obesity)? @ -None Was patient admitted / discharged? @ -Discharged. Lab work unremarkable. Urinalysis has some bacteria, but is otherwise not suggestive of infection. Urine sent for culture. CT scan of the abdomen and pelvis reveals no acute process. Patient initially treated with IV fluids and Bentyl, which she felt was beneficial. She was then given a dose of Toradol, which was also helpful. Rx for Bentyl and Celebrex provided with dosing instructions reviewed. Patient discharged home in stable condition advised to follow-up with her primary care provider. Undiagnosed new problem with uncertain prognosis? @ -None Drug Therapy requiring intensive monitoring for toxicity (Heparin, Nitro, Insulin, Cardizem)? @ -None Were any procedures done? @ -None Diagnosis/symptom? @ -Abdominal pain Acute, or Chronic, or Acute on Chronic? @ -Acute Uncomplicated (without systemic symptoms) or Complicated (systemic symptoms)? @ -Uncomplicated Side effects of treatment? @ -None Exacerbation, Progression, or Severe Exacerbation] @ -Not applicable Poses a threat to life or bodily function? @ -No Return precautions reviewed in depth, the patient is instructed to return to the emergency department with any new, worsening, or concerning symptoms. Patient verbalized understanding. This case was discussed in detail with the attending ED physician, Dr. Hairston. Presentation, findings, and treatment plan discussed in detail as well. (Silva Thomas) - Lab Data Lab Results 01/19/24 01/19/24 01/19/24 Range/Units 15:01 15:01 15:01 WBC 8.1 (3.8-10.6) k/uL RBC 5.46 H (3.80-5.40) m/uL Hgb 15.3 (11.4-16.0) gm/dL Hct 44.8 (34.0-46.0) % MCV 82.0 (80.0-100.0) fL MCH 28.1 (25.0-35.0) pg MCHC 34.2 (31.0-37.0) g/dL RDW 13.8 (11.5-15.5) % Plt Count 223 (150-450) k/uL MPV 8.1 Neutrophils % 63 % Lymphocytes % 25 % Monocytes % 8 % Eosinophils % 2 % Basophils % 0 % Neutrophils # 5.1 (1.3-7.7) k/uL Lymphocytes # 2.0 (1.0-4.8) k/uL Monocytes # 0.6 (0-1.0) k/uL Eosinophils # 0.2 (0-0.7) k/uL Basophils # 0.0 (0-0.2) k/uL Sodium (137-145) mmol/L Potassium (3.5-5.1) mmol/L Chloride (98-107) mmol/L Carbon Dioxide (22-30) mmol/L Anion Gap mmol/L BUN (7-17) mg/dL Creatinine (0.52-1.04) mg/dL Est GFR (CKD-EPI)AfAm (>60 ml/min/1.73 sqM) Est GFR (CKD-EPI)NonAf (>60 ml/min/1.73 sqM) Glucose (74-99) mg/dL Plasma Lactic Acid Umberto (0.7-2.0) mmol/L Calcium (8.4-10.2) mg/dL Total Bilirubin (0.2-1.3) mg/dL AST (14-36) U/L ALT (4-34) U/L Alkaline Phosphatase (38-126) U/L Total Protein (6.3-8.2) g/dL Albumin (3.5-5.0) g/dL Lipase (23-300) U/L Urine Color Yellow Urine Appearance Turbid H (Clear) Urine pH 5.5 (5.0-8.0) Ur Specific Doyle 1.031 (1.001-1.035) Urine Protein Trace H (Negative) Urine Glucose (UA) Negative (Negative) Urine Ketones Negative (Negative) Urine Blood Large H (Negative) Urine Nitrite Negative (Negative) Urine Bilirubin Negative (Negative) Urine Urobilinogen <2.0 (<2.0) mg/dL Ur Leukocyte Esterase Negative (Negative) Urine RBC 17 H (0-5) /hpf Ur Squamous Epith Cells 3 (0-4) /hpf Urine Bacteria Moderate H (None) /hpf Urine Mucus Many H (None) /hpf Urine HCG, Qual Not Detected (Not Detectd) 01/19/24 01/19/24 Range/Units 15:01 15:01 WBC (3.8-10.6) k/uL RBC (3.80-5.40) m/uL Hgb (11.4-16.0) gm/dL Hct (34.0-46.0) % MCV (80.0-100.0) fL MCH (25.0-35.0) pg MCHC (31.0-37.0) g/dL RDW (11.5-15.5) % Plt Count (150-450) k/uL MPV Neutrophils % % Lymphocytes % % Monocytes % % Eosinophils % % Basophils % % Neutrophils # (1.3-7.7) k/uL Lymphocytes # (1.0-4.8) k/uL Monocytes # (0-1.0) k/uL Eosinophils # (0-0.7) k/uL Basophils # (0-0.2) k/uL Sodium 138 (137-145) mmol/L Potassium 4.1 (3.5-5.1) mmol/L Chloride 107 (98-107) mmol/L Carbon Dioxide 22 (22-30) mmol/L Anion Gap 9 mmol/L BUN 10 (7-17) mg/dL Creatinine 0.73 (0.52-1.04) mg/dL Est GFR (CKD-EPI)AfAm >90 (>60 ml/min/1.73 sqM) Est GFR (CKD-EPI)NonAf >90 (>60 ml/min/1.73 sqM) Glucose 92 (74-99) mg/dL Plasma Lactic Acid Umberto 1.0 (0.7-2.0) mmol/L Calcium 8.9 (8.4-10.2) mg/dL Total Bilirubin 0.7 (0.2-1.3) mg/dL AST 43 H (14-36) U/L ALT 47 H (4-34) U/L Alkaline Phosphatase 111 (38-126) U/L Total Protein 7.5 (6.3-8.2) g/dL Albumin 4.2 (3.5-5.0) g/dL Lipase 41 (23-300) U/L Urine Color Urine Appearance (Clear) Urine pH (5.0-8.0) Ur Specific Doyle (1.001-1.035) Urine Protein (Negative) Urine Glucose (UA) (Negative) Urine Ketones (Negative) Urine Blood (Negative) Urine Nitrite (Negative) Urine Bilirubin (Negative) Urine Urobilinogen (<2.0) mg/dL Ur Leukocyte Esterase (Negative) Urine RBC (0-5) /hpf Ur Squamous Epith Cells (0-4) /hpf Urine Bacteria (None) /hpf Urine Mucus (None) /hpf Urine HCG, Qual (Not Detectd) Disposition <Levi Garcia - Last Filed: 01/19/24 14:32> Is patient prescribed a controlled substance at d/c from ED?: No Time of Disposition: 17:20 <Silva Thomas - Last Filed: 01/22/24 10:14> Clinical Impression: Abdominal pain Disposition: HOME SELF-CARE Instructions (If sedation given, give patient instructions): Abdominal Pain (ED) Additional Instructions: Return to the emergency department with any new, worsening, or concerning symptoms. Take the Celebrex with Tylenol as needed for pain relief. If you choose to take the Celebrex, do not take any other anti-inflammatories such as ibuprofen, take one or the other. You can take the Bentyl up to 4 times daily. If this makes you constipated you may need to stop taking it or add a stool softener. Follow up with your primary care provider in 1-2 days. Prescriptions: Dicyclomine [Bentyl] 20 mg PO QID PRN #30 tablet PRN Reason: Gi Upset Celecoxib 200 mg PO TID PRN #30 cap PRN Reason: Pain Referrals: Frederic Kate PAC [Primary Care Provider] - 1-2 days
[2024-01-19] MEDS: SODIUM CHLORIDE 0.9% 1,000 ML IV STA (15:04)
[2024-01-19 15:16] LABS: Basophils % (A) 0 %; Eosinophils # (A) 0.2 k/uL (0-0.7); Eosinophils % (A) 2 %; HCT 44.8 % (34.0-46.0); HGB 15.3 gm/dL (11.4-16.0); Lymphocytes % (A) 25 %; MCH 28.1 pg (25.0-35.0); MCHC 34.2 g/dL (31.0-37.0); Mean Platelet Volume 8.1; Monocytes # (A) 0.6 k/uL (0-1.0); Monocytes % (A) 8 %; Neutrophils # (A) 5.1 k/uL (1.3-7.7); Neutrophils % (A) 63 %; Platelet Count 223 k/uL (150-450); RBC 5.46 m/uL (3.80-5.40); RDW 13.8 % (11.5-15.5); WBC 8.1 k/uL (3.8-10.6)
[2024-01-19 15:20] LABS: Appearance,Urine Turbid (Clear); Bacteria,Urine Moderate /hpf; Bilirubin,Urine Negative (Negative); Blood,Urine Large (Negative); Color,Urine Yellow; Glucose,Urine (UA) Negative (Negative); Ketones,Urine Negative (Negative); Leukocyte Esterase,Urine Negative (Negative); Mucus,Urine Many /hpf; Nitrite,Urine Negative (Negative); PH, Urine 5.5 (5.0-8.0); Protein,Urine Trace (Negative); RBC,Urine 17 /hpf (0-5); Specific Gravity,Urine 1.031 (1.001-1.035); Squamous Epithelial Cell,Urine 3 /hpf (0-4); Urobilinogen,Urine <2.0 mg/dL (<2.0)
[2024-01-19 15:40] LABS: ALT 47 U/L (4-34); AST 43 U/L (14-36); African American GFR (CKD) >90 (>60 ml/min/1.73 sqM); Albumin 4.2 g/dL (3.5-5.0); Alkaline Phosphatase 111 U/L (38-126); Anion Gap 9 mmol/L; Blood Urea Nitrogen 10 mg/dL (7-17); Calcium 8.9 mg/dL (8.4-10.2); Carbon Dioxide 22 mmol/L (22-30); Chloride 107 mmol/L (98-107); Glucose 92 mg/dL (74-99); Lipase 41 U/L (23-300); Non-African American GFR(CKD) >90 (>60 ml/min/1.73 sqM); Potassium 4.1 mmol/L (3.5-5.1); Sodium 138 mmol/L (137-145); Total Bilirubin 0.7 mg/dL (0.2-1.3); Total Protein 7.5 g/dL (6.3-8.2)
[2024-01-19 15:43] VITALS: RESP 18
--- NOTE | 2024-01-19 16:06 | CT ---
EXAMINATION TYPE: CT abdomen pelvis w con DATE OF EXAM: 01/19/2024 COMPARISON: None HISTORY: lower abdominal pain and nausea CT DLP: 1201.6 mGycm Automated exposure control for dose reduction was used. TECHNIQUE: Helical acquisition of images was performed from the lung bases through the pelvis. CONTRAST: Performed without Oral Contrast and with IV Contrast, patient injected with 100 mL of Isovue 300. FINDINGS: There are 2 3-4 mm nodules in the right lung base otherwise the lungs are clear without infiltrate or consolidative density. The gallbladder is normal without distention, wall thickening, pericholecystic fluid or gallstones. T here is no biliary ductal dilatation. There is no focal mass or organomegaly involving the liver, pancreas, spleen or adrenal glands. There is no solid renal mass or hydronephrosis and there is homogeneous contrast enhancement of the r enal parenchyma. The caliber the abdominal aorta is normal is no retroperitoneal adenopathy or hemorr carrie. The bowel loops are normal in caliber and there is no evidence of dilatation or obstruction. No infla mmatory changes are identified in the bowel wall or mesentery. There is no free intraperitoneal air or fluid. No pelvic mass, free fluid, abscess or adenopathy. There are postsurgical changes in the bilateral ad nexa. The osseous structures and soft tissues are intact. IMPRESSION: No acute changes within the abdomen or pelvis.
[2024-01-19] MEDS: DICYCLOMINE 10 MG/ML 2 ML AMP IM STA (16:25)
[2024-01-19] MEDS: ACET/COD 300 MG/30 MG STARTER PACK 6 TAB BTL PO STA (17:45)
[2024-01-19] MEDS: KETOROLAC 15 MG/ML 1 ML VIAL IVP STA (17:51)
[2024-01-19 18:13] VITALS: BP 101/70; PULSE 80; TEMP 98
== END 2024-01-19 18:06 | disposition home or self-care (01) ==
LOC: EC 13:54
DX: R10.30 Lower abdominal pain, unspecified (principal)
CPT/HCPCS: 36415; 80053; 83605; 83690; 85025; 81001; 81025; 87086; 74177; 99284; 96374; 96361; 96372; J0500; J1885; Q9967